=== PATIENT | female | born 1995 ===

== ENCOUNTER 2025-01-20 14:54 | Emergency (ER) | payer SELFPAY ==
[2025-01-20 15:18] LABS: HEMATOCRIT 40.7 % (37.0-47.0); HEMOGLOBIN 13.5 g/dL (12.0-16.0); MEAN CORPUSCULAR HEMOGLOBIN 29.4 pg (27.0-34.0); MEAN CORPUSCULAR HGB CONC 33.2 g/dL (33.0-35.0); MEAN CORPUSCULAR VOLUME 88.7 fL (80-100); PLATELET COUNT,PLT 238 10^3/uL (150-450); RED BLOOD CELL COUNT 4.59 10^6/uL (4.2-5.4); WHITE BLOOD CELL COUNT,WBC 3.6 10^3/uL (5.0-10.0)
[2025-01-20 15:21] LABS: BASOPHILS PERCENT AUTO 0.6 % (0.0-1.0); EOSINOPHILS PERCENT AUTO 0.6 % (1.0-3.0); LYMPHOCYTES PERCENT AUTO 44.2 % (20.5-50.1); MONOCYTES PERCENT AUTO 25.3 % (2-8); NEUTROPHILS PERCENT AUTO 29.3 % (42.2-75.2)
[2025-01-20 15:38] LABS: ALANINE AMINOTRANSFERASE,ALT 16 U/L (14-59); ALBUMIN 3.4 g/dL (3.4-5.0); ALKALINE PHOSPHATASE 75 U/L (46-116); ASPARTATE AMNIOTRANSFERASE,AST 19 U/L (15-37); BILIRUBIN DIRECT 0.1 mg/dL (0.0-0.2); BILIRUBIN INDIRECT 0.2; BILIRUBIN TOTAL 0.3 mg/dL (0.2-1.0); BLOOD UREA NITROGEN,BUN 9 mg/dL (7-18); CALCIUM 8.1 mg/dL (8.5-10.1); CARBON DIOXIDE,CO2 25 mmol/L (21-32); CHLORIDE,CL 101 mmol/L (98-107); CREATININE 0.76 mg/dL (0.55-1.02); GLUCOSE RANDOM 105 mg/dL (70-99); PROTEIN TOTAL,TP 6.9 g/dL (6.4-8.2); SODIUM,NA 140 mmol/L (136-145)
[2025-01-20 15:40] LABS: ESTIMATED GFR 108 mL/min (>=60); ETHANOL BLOOD MEDICAL < 3 mg/dL (0)
[2025-01-20 15:41] LABS: HCG QUALITATIVE,SERUM NEGATIVE (NEGATIVE)
[2025-01-20 15:43] LABS: BAND PERCENT MAN 2 %; LYMPHOCYTES PERCENT MAN 43 % (20-50); MONOCYTES PERCENT MAN 20 % (2-8); SEG NEUTROPHILS PERCENT MAN 35 % (42-75)
[2025-01-20] MEDS: Sodium Chloride 0.9% 1,000 ML IV SCH (15:44)
[2025-01-20] MEDS: Potassium Chloride 10 MEQ Tab.ER PO ONE (16:18)
== END 2025-01-20 16:42 | disposition home or self-care (01) ==
LOC: DL.ED 14:54
DX: R56.9 Unspecified convulsions (principal); S09.93XA Unspecified injury of face, initial encounter; X58.XXXA Exposure to other specified factors, initial encounter
CPT/HCPCS: 36415; 70450; 70486; 71045; 80048; 80076; 80307; 82947; 84703; 85025; 93005; 96360; 99285; A9270; J7030